=== PATIENT | female | born 1950 | race Caucasian/White ===

== ENCOUNTER → 2017-07-06 | Outpatient (CLI) | payer MEDICARE ==
[~2017-07-06] MED LIST: ASPIRIN325 PO; BAYER CHEWABLE81 MG PO; CELEBREX 200 M200 M1 PO; CELEBREX 200 M200 MG PO; COQ-10100 MG PO; ENOXAPARIN40 MG/0.1 SUBQ; GABAPENTIN 100100 MG PO; L-LYSINE500 M1 PO; LIPITOR 20 MG T20 M1 PO; LOVASTAT40 PO; NORCO 10-325 T1 EACH PO; NORCO 5-325 TA1 EACH PO; OXYCODONE HCL5 MG PO; VITAMIN B-12500 MCG PO; VITAMIN B-6100 MG PO; VITAMIN D31000 UNI2 PO
--- NOTE | 2017-07-08 09:33 | PAINCON ---
[address] [address] PAIN MANAGEMENT CONSULTATION Name: BANUELOSDEBORA [id number] Admission: 07/06/17 Attend Phys: Dg Guevara Discharge: Date of : 50 Report #: [id number] THIS REPORT FOR: //name// CC: Miguel A Hugo DATE OF SERVICE: 07/06/2017 The patient is a 67-year-old female, seen in consultation at the request of Dr. Bond for evaluation of pain in the low back, left buttock and leg. The patient notes she has had chronic back pain, but has had acute exacerbation of left radicular pain, "fire ant" burning sensation down the left leg, into the medial anterior thigh, that has been present since May. 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 She currently is on FMLA due to the ongoing pain and weakness in the left leg. She denies saddle anesthesia or bowel or bladder continence changes. Incidentally, of note she had had a lumbar decompressive laminectomy in 2004 with excellent improvement of symptoms. 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 She describes the pain as continuous, burning, shooting, aching, pulling, sharp, stabbing, tender, rates anywhere from 4-8 on a Visual Analog Scale. REVIEW OF SYSTEMS: Complete review of systems is attached to chart and gone over with the patient. She is , does not smoke, drink alcohol to excess. History of total knee arthroplasty and the aforementioned lumbar laminectomy. Otherwise, the patient reports reasonably good health. Does take Lipitor for dyslipidemia, phentermine (Adipex-P) for weight loss, daily aspirin. Recently, she has been started on some hydrocodone for pain. 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 Again, she has been on FMLA for the past week. Pain impact score is 38/70. PHYSICAL EXAMINATION: VITAL SIGNS: This is a 5 feet 1 inch, 162 pound female, BMI is 32 kilograms per meter squared. Blood pressure 148/88, pulse is 68, respirations 16. NEUROLOGIC: Cranial nerves 2-12 are grossly intact. HEENT: Pupils equal and react to light and accommodation. Extraocular muscles are intact. There is no nystagmus or lateral gaze deviation. Thyroid is modestly enlarged. NECK: Cervical range of motion is good. She has slight [place] [address] PAIN MANAGEMENT CONSULTATION Name: DEBORA BANUELOS Room: [facility] Ruth#: [id number] Admission: 07/06/17 Attend Phys: Dg Guevara Discharge: Date of : 50 Report #: [id number] EXTREMITIES: Upper extremity strength is preserved. HEART: Regular rate and rhythm without murmur. LUNGS: Clear to auscultation. Modestly endomorphic build. MUSCULOSKELETAL: Rises from chair using armrest, has a moderately antalgic gait. Lumbar flexion is good to 90 degrees. Tender in the L5 area. No discrete trigger points are noted. No discrete tenderness over the SI joints. Decreased left leg dorsiflexion about 2/5 strength, left lower extremity extension and hip flexion is about 3/5, right leg is stronger at 4-5 to all muscle groups tested. Straight leg raise is negative. Patellar reflex is modestly diminished on left compared to the right. Achilles reflexes are preserved. DIAGNOSTIC STUDIES: Include the MRI of the lumbar spine from 06/08/2017, does note L2-L3 to have a superimposed left foraminal disk protrusion, likely etiology of the patient's left L2 radicular symptoms. RECOMMENDATIONS: 1. Epidural injection under fluoroscopy today at L2-L3. 2. Celebrex 200 mg 1 a day. 3. Follow up in 3 weeks to evaluate efficacy. Thank you for allowing me to participate in the patient's care. I will keep you abreast of her progress. PROCEDURE: Lumbar epidural injection under fluoroscopy. PROCEDURE NOTE: After both written and informed consent to include risk of spinal cord damage, increased pain, weakness and dural puncture, the patient was taken to the fluoroscopy suite, placed in the prone position. After sterile prep and drape, a skin wheal with lidocaine was raised. A 22-gauge epidural Tuohy needle was inserted in the midline at L2-L3 with good loss to resistance. Negative aspiration for cerebrospinal fluid or blood was noted. Then 1 mL of Omnipaque under biplanar fluoroscopy showed good spread within the epidural space. This was followed with 80 mg of triamcinolone plus 1 mL of 1.5% preservative-free Xylocaine, 0.5 mL Xylocaine was then injected to flush the needle; it was removed. The patient was monitored for an appropriate period of time and discharged in good and stable condition. <ELECTRONICALLY SIGNED> By: Abram Hugo DO 07/08/17 [id number] Wendie Hugo DO /nt
== END | disposition home or self-care (01) ==
LOC: M.PC 01:30
DX: M54.16 Radiculopathy, lumbar region (principal); Z68.32 Body mass index [BMI] 32.0-32.9, adult; Z98.890 Other specified postprocedural states; R78.5 Finding of other psychotropic drug in blood; Z79.899 Other long term (current) drug therapy